=== PATIENT | female | born 1990 | race Caucasian/White ===

== ENCOUNTER 2017-03-06 11:18 | Emergency (ER) | payer OTHER ==
[~2017-03-06] VITALS: Ht 154.9 cm; Wt 90.7 kg
[2017-03-06 13:04] VITALS: BP 106/56
== END 2017-03-06 13:05 | disposition home or self-care (01) ==
LOC: M.ERS 11:18
DX: S62.631A Displaced fracture of distal phalanx of left index finger, initial encounter for closed fracture (principal); W23.0XXA Caught, crushed, jammed, or pinched between moving objects, initial encounter; Y93.89 Activity, other specified; Y92.89 Other specified places as the place of occurrence of the external cause; Y99.8 Other external cause status